=== PATIENT | female | born 1980 | race Caucasian/White ===

== ENCOUNTER 2021-09-24 22:01 | Emergency (ER) | payer MEDICARE, MEDICAID ==
[~2021-09-24] VITALS: Ht 170.2 cm; Wt 81.7 kg
[~2021-09-24 22:01] MED LIST: ALPR-624 PO; BAC10T PO; CYCL-1 PO; ESCI10TA45 PO; NORCO10T PO; ONDA4TAB59 PO; PROM25TA14 PO
[2021-09-24 22:03] VITALS: BP 131/81
== END 2021-09-24 23:29 | disposition home or self-care (01) ==
LOC: ER 22:01
DX: S69.92XA Unspecified injury of left wrist, hand and finger(s), initial encounter (principal); M79.645 Pain in left finger(s); G43.909 Migraine, unspecified, not intractable, without status migrainosus; J45.909 Unspecified asthma, uncomplicated; E11.9 Type 2 diabetes mellitus without complications; F12.90 Cannabis use, unspecified, uncomplicated; Z98.890 Other specified postprocedural states; Z88.8 Allergy status to other drugs, medicaments and biological substances; Z79.899 Other long term (current) drug therapy; X58.XXXA Exposure to other specified factors, initial encounter; Y93.89 Activity, other specified; Y92.89 Other specified places as the place of occurrence of the external cause; Y99.8 Other external cause status
CPT/HCPCS: 99281

== ENCOUNTER 2021-11-23 20:24 | Emergency (ER) | payer MEDICARE, MEDICAID ==
[~2021-11-23] VITALS: Ht 170.2 cm; Wt 81.8 kg
[2021-11-23 20:32] VITALS: BP 170/111
--- NOTE | 2021-11-23 20:51 | NUR ---
PATIENT STATE THAT IT CAME ON VERUY STRONG AROUND 6 PM TONIGHT ITS ASSOCIATED WITH PHOTOPHOBIA AND NAUSEA AND VOMITING , DOES HAVE A HISTORY OG MIGRAINES , SHE STATES THAT SHE IS NOT TAKING ANYHTHING FOR THE HEADACHES
[2021-11-23] MEDS ORDERED: normal saline 1000ML IV soln IVB ONE (21:25)
[2021-11-23] MEDS ORDERED: proCHLORperazine 10 MG/2 ml inj IV ONE (21:25)
[2021-11-23] MEDS ORDERED: diphenhydrAMINE 50 mg/ml inj IV ONE (21:25)
[2021-11-23] MEDS ORDERED: ketorolac tromethamine 15mg/ml inj. IV ONE (22:10)
== END 2021-11-23 22:41 | disposition home or self-care (01) ==
LOC: ER 20:24
DX: G43.909 Migraine, unspecified, not intractable, without status migrainosus (principal); R11.10 Vomiting, unspecified; J45.909 Unspecified asthma, uncomplicated; E11.9 Type 2 diabetes mellitus without complications; F12.90 Cannabis use, unspecified, uncomplicated; Z98.890 Other specified postprocedural states; Z88.8 Allergy status to other drugs, medicaments and biological substances; Z79.899 Other long term (current) drug therapy
CPT/HCPCS: 96374; 96375; 99284; J0780; J1200; J1885; J7030

== ENCOUNTER 2022-03-17 17:42 | Emergency (ER) | payer MEDICARE, MEDICAID ==
[~2022-03-17] VITALS: Ht 170.2 cm; Wt 81.8 kg
[2022-03-17 18:29] VITALS: BP 178/100
[2022-03-17] MEDS ORDERED: proCHLORperazine 10 MG/2 ml inj IV ONE (19:15)
[2022-03-17] MEDS ORDERED: diphenhydrAMINE 50 mg/ml inj IV ONE (19:15)
[2022-03-17] MEDS ORDERED: normal saline 1000ml 1,000 ML IV ONE (19:15)
[2022-03-17 19:33] LABS: BASOPHILS # (AUTO) 0.1 X10'3 (0-0.2); BASOPHILS % (AUTO) 1.1 % (0-1); EOSINOPHILS # (AUTO) 0.2 X10'3 (0-0.9); EOSINOPHILS % (AUTO) 2.9 % (0-6); HEMATOCRIT 41.4 % (35.0-45.0); HEMOGLOBIN 14.1 g/dl (12.0-16.0); LYMPHOCYTES # (AUTO) 2.1 X10'3 (1.1-4.8); MEAN CORPUSCULAR HEMOGLOBIN 30.6 PG (27.0-31.0); MEAN CORPUSCULAR HGB CONC 34.1 g/dL (33.0-36.5); MEAN CORPUSCULAR VOLUME 89.9 FL (78-98); MEAN PLATELET VOLUME 6.6 FL (7.4-10.4); MONOCYTES # (AUTO) 0.5 X10'3 (0-0.9); MONOCYTES % (AUTO) 7.7 % (2-12); NEUTROPHILS # (AUTO) 4.2 X10'3 (1.8-7.7); NEUTROPHILS % (AUTO) 59.3 % (42-75); PLATELET COUNT 320 X10'3 (140-440); RED CELL DISTRIBUTION WIDTH 13.9 % (11.5-14.5); WHITE BLOOD COUNT 7.1 X10'3 (4.5-11.0)
[2022-03-17 19:48] LABS: ALANINE AMINOTRANSFERASE 34 U/L (12-78); ALBUMIN 3.8 G/DL (3.4-5.0); ALKALINE PHOSPHATASE 85 IU/L (46-116); ANION GAP 9 (8-16); ASPARTATE AMINO TRANSFERASE 23 U/L (10-37); BILIRUBIN,TOTAL 0.3 MG/DL (0.1-1.0); BLOOD UREA NITROGEN 7 MG/DL (7-18); BUN/CREATININE RATIO 8.9 (6.6-38.0); CALCIUM 8.8 MG/DL (8.5-10.1); CHLORIDE 105 MMOL/L (99-107); CREATININE 0.79 MG/DL (0.40-0.90); GLUCOSE 114 MG/DL (70-104); LIPASE 89 U/L (73-393); POTASSIUM 3.7 MMOL/L (3.5-5.1); SODIUM 141 MMOL/L (135-145); TOTAL PROTEIN 7.7 G/DL (6.4-8.2); eGFR 80 ML/MIN
[2022-03-17 19:53] LABS: CLARITY,URINE CLEAR (Clear); COLOR,URINE YELLOW (Yellow); GLUCOSE, URINE NEGATIVE (Neg); KETONES,URINE NEGATIVE (Neg); LEUKOCYTE ESTERASE ,URINE SMALL (Neg); NITRITES, URINE NEGATIVE (Neg); OCCULT BLOOD,URINE NEGATIVE (Neg); PH,URINE 8.5 (4.8-8.0); PROTEIN,URINE 30 mg/dl (Neg); UROBILINOGEN,URINE 0.2 E.U/dL (0.2-1.0)
[2022-03-17 20:02] LABS: UA COLLECTION TYPE NON-SPECIFIED
[2022-03-17 20:09] LABS: BACTERIA,URINE FEW /HPF (Neg); RBC,URINE 0-2 /HPF (0-2); SQUAMOUS EPITHELIAL CELL,UR FEW /LPF (FEW); WBC,URINE 0-4 /HPF (0-4)
[2022-03-17] MEDS ORDERED: ONDA4TAB12 PO (20:13)
== END 2022-03-17 21:18 | disposition home or self-care (01) ==
LOC: ER 17:42
DX: R11.2 Nausea with vomiting, unspecified (principal); R10.84 Generalized abdominal pain; G43.909 Migraine, unspecified, not intractable, without status migrainosus; E11.9 Type 2 diabetes mellitus without complications; J45.909 Unspecified asthma, uncomplicated; F12.10 Cannabis abuse, uncomplicated; Z79.82 Long term (current) use of aspirin; Z88.8 Allergy status to other drugs, medicaments and biological substances; Z79.899 Other long term (current) drug therapy; Z88.6 Allergy status to analgesic agent
CPT/HCPCS: 80053; 81001; 83690; 85025; 87088; 96361; 96374; 96375; 99284; J0780; J1200; J7030

== ENCOUNTER 2022-10-28 11:32 | Emergency (ER) | payer MEDICARE, MEDICAID ==
[~2022-10-28] VITALS: Ht 170.2 cm; Wt 81.0 kg
[~2022-10-28 11:32] MED LIST changes: +ONDA4TAB12 PO
[2022-10-28 11:55] VITALS: BP 172/101
[2022-10-28] MEDS ORDERED: IBUP-1986 PO (13:14)
[2022-10-28] MEDS ORDERED: TRAM50TA2 PO ×2 (13:14→13:16)
== END 2022-10-28 13:50 | disposition home or self-care (01) ==
LOC: ER 11:33
DX: M25.562 Pain in left knee (principal); M25.572 Pain in left ankle and joints of left foot; G43.909 Migraine, unspecified, not intractable, without status migrainosus; F12.10 Cannabis abuse, uncomplicated; Z98.890 Other specified postprocedural states; Z79.899 Other long term (current) drug therapy; J45.909 Unspecified asthma, uncomplicated; E11.9 Type 2 diabetes mellitus without complications; Z88.6 Allergy status to analgesic agent; Z88.8 Allergy status to other drugs, medicaments and biological substances; Z79.1 Long term (current) use of non-steroidal anti-inflammatories (NSAID); Z79.2 Long term (current) use of antibiotics
CPT/HCPCS: 73564; 73610; 99284; L4360

== ENCOUNTER 2024-03-29 17:17 | Emergency (ER) | payer MEDICARE, MEDICAID ==
[~2024-03-29] VITALS: Ht 170.2 cm; Wt 81.8 kg
[~2024-03-29 17:17] MED LIST changes: +IBUP-1986 PO; +ONDA-243 PO; -ONDA4TAB12 PO
[2024-03-29] MEDS ORDERED: CEPH-585 PO (18:33)
[2024-03-29] MEDS: TETanus/Pertussis (Acell)/Diphther VAC/PF (Tdap-Adult) 0.5ml syringe IMVAC ONE (18:50)
[2024-03-29 19:05] VITALS: BP 123/76; PULSE 60; RESP 15; TEMP 98; O2SAT 98
== END 2024-03-29 19:07 | disposition home or self-care (01) ==
LOC: ER 17:19
DX: S91.011A Laceration without foreign body, right ankle, initial encounter (principal); G43.909 Migraine, unspecified, not intractable, without status migrainosus; J45.909 Unspecified asthma, uncomplicated; E11.9 Type 2 diabetes mellitus without complications; F12.90 Cannabis use, unspecified, uncomplicated; Z88.6 Allergy status to analgesic agent; Z91.041 Radiographic dye allergy status; Z79.899 Other long term (current) drug therapy; Z79.2 Long term (current) use of antibiotics; Z98.890 Other specified postprocedural states; Z98.51 Tubal ligation status; X58.XXXA Exposure to other specified factors, initial encounter; Y93.89 Activity, other specified; Y92.89 Other specified places as the place of occurrence of the external cause; Y99.8 Other external cause status
CPT/HCPCS: 12001; 99283; Z7610

== ENCOUNTER 2024-08-01 18:24 | Emergency (ER) | payer MEDICAID, MEDICARE ==
[~2024-08-01] VITALS: Ht 162.6 cm; Wt 78.0 kg
[2024-08-01 18:41] VITALS: BP 146/106; PULSE 86; RESP 18; TEMP 98; O2SAT 98
== END 2024-08-01 18:56 ==
LOC: ER 18:24
DX: Z02.89 Encounter for other administrative examinations (principal); E11.9 Type 2 diabetes mellitus without complications; J45.909 Unspecified asthma, uncomplicated; G43.909 Migraine, unspecified, not intractable, without status migrainosus; F12.90 Cannabis use, unspecified, uncomplicated; Z98.51 Tubal ligation status; Z98.890 Other specified postprocedural states; Z72.89 Other problems related to lifestyle; Z88.8 Allergy status to other drugs, medicaments and biological substances; Z88.6 Allergy status to analgesic agent; Z79.1 Long term (current) use of non-steroidal anti-inflammatories (NSAID); Z79.899 Other long term (current) drug therapy; V89.2XXA Person injured in unspecified motor-vehicle accident, traffic, initial encounter; Y93.89 Activity, other specified; Y92.410 Unspecified street and highway as the place of occurrence of the external cause; Y99.8 Other external cause status
CPT/HCPCS: 99283